=== PATIENT | female | born 1975 ===

== ENCOUNTER 2017-11-03 08:16 | Emergency (ER) | payer BC, OTHER ==
[2017-11-03 08:29] VITALS: BP 111/66
--- NOTE | 2017-11-03 09:04 | UC ---
GI Bleed HPI - HPI Summary HPI Summary: This is scribe [facility]az[facility] ([place] documenting for attending Suhas Gipson MD. Patient is a 42 y/o F complains of rectal bleeding onset ~1 hour ago, this AM. She reports a bowel movement this AM which she describes as "a pool of blood in the toilet". Assoc. Sx: blood in stool. Denies: N/V/D, pain. PMHx: Hemmeroids, however she reports that these symptoms are different from previous instances. She reports not being worried about her menstrual cycle secondary to having an IUD. I, Dr. Gipson, personally performed the services described in this documentation as scribed in my presence and it is both accurate and complete. - History Of Current Complaint Chief Complaint: UCGU Stated Complaint: GI COMPLAINT Time Seen by Provider: 11/03/17 08:48 Hx Obtained From: Patient Hx Last Menstrual Period: iud Onset/Duration: Sudden Onset, Lasting Hours, Still Present Pain Intensity: 0 Pain Scale Used: 0-10 Numeric Associated Signs And Symptoms: Positive: Other - POS: Blood in stool. Negative : Nausea - Allergies/Home medications Allergies/Adverse Reactions: Allergies Allergy/AdvReac Type Severity Reaction Status Date / Time No Known Allergies Allergy Verified 11/03/17 08:29 Home Medications: Home Medications Aspirin 81 mg CHEW TAB* 162 mg PO DAILY 11/03/17 [History Confirmed 11/03/17] PMH/Surg Hx/FS Hx/Imm Hx Endocrine History: Other Other Endocrine History: NEG: DM Cardiovascular History: Other Other Cardiovascular History: POS: Carotid dissection NEG: CAD, HTN Neurological History: Other Other Neurological History: Stroke - Surgical History Surgical History: None - Family History Known Family History: Negative: Cardiac Disease, Hypertension, Diabetes - Social History Occupation: Employed Full-time Lives: With Family Alcohol Use: Daily Substance Use Type: None Smoking Status (MU): Never Smoked Tobacco Review of Systems Constitutional: Other - NEG: pain Gastrointestinal: Other - NEG: N/V/D Genitourinary: Abnormal Bleeding - Rectal All Other Systems Reviewed And Are Negative: Yes Physical Exam - Summary Physical Exam Summary: VITAL SIGNS: Reviewed. GENERAL: Patient is a well-developed and nourished Female who is lying comfortable in the stretcher. Patient is not in any acute respiratory distress. HEAD AND FACE: Normocephalic EYES: PERRLA, EOMI x 2. EARS: Hearing grossly intact. MOUTH: Oropharynx within normal limits. NECK: Supple, trachea is midline, no adenopathy, no JVD, no carotid bruit. CHEST: Symmetric, no tenderness at palpation LUNGS: Clear to auscultation bilaterally. No wheezing or crackles. CVS: Regular rate and rhythm, S1 and S2 present, no murmurs or gallops appreciated. ABDOMEN: Soft, non-tender. Bowel sounds are normal. No abdominal abnormal pulsations. EXTREMITIES: Full ROM in all major joints, no edema, no cyanosis or clubbing. NEURO: Alert and oriented x 3. No acute neurological deficits. Speech is normal and follows RECTAL: nml sphincter tone, multiple external hemorrhoids, no active bleeding, ( -) melena. Triage Information Reviewed: Yes Vital Signs: Initial Vital Signs Temp 98.8 F 11/03/17 08:24 Pulse 72 11/03/17 08:24 Resp 18 11/03/17 08:24 BP 111/66 11/03/17 08:24 Pulse Ox 100 11/03/17 08:24 Vital Signs Reviewed: Yes Bleed Course/Dx - Course Course Of Treatment: Patient is a 42-year-old female who presents to the urgent care with chief complaint of ectopy. She reports that this morning she had a bowel movement and afterwards she soaked blood in the toilet. Patient has no history of rectal bleed. The patient is not been taking any blood thinners, however, the patient is taking aspirin daily. Physical exam: patient has external hemorrhoids, and I believe that the bleeding is from the hemorrhoids. The patient reports that she has had hemorrhoids since she was . Occult blood test is negative. The patient is hemodynamically stable. The patient was instructed to return to the urgent care or go to the ER if the patient develops more rectal bleeding. Otherwise follow-up with primary care physician for further workup and management. Patient is agreeable with that plan. - Differential Dx/Diagnosis Provider Diagnoses: Rectal bleed. External hemorrhoids Discharge - Sign-Out/Discharge Documenting (check all that apply): Patient Departure All imaging exams completed and their final reports reviewed: No Studies - Discharge Plan Condition: Stable Disposition: HOME Prescriptions: Hydrocortisone SUPP* [Anusol HC Supp*] 25 mg .SEE ORDER BID #14 supp Patient Education Materials: Hemorrhoids (DC), Rectal Bleeding (ED) Referrals: [facility] [place] [facility] [Outside] - 3 Days Additional Instructions: Take medications as instructed and adhere to plan Take Acetaminophen or ibuprofen for pain or fever Increase your fluid intake Return to the or go to the emergency department if symptoms worsen Follow-up with primary care physician in next 2-3 days - Billing Disposition and Condition Condition: STABLE Disposition: Home - Attestation Statements Document Initiated by Benito: Yes Documenting Scribe: Lazaro Palacios Provider For Whom Benito is Documenting (Include Credential): Suhas Gipson MD. Scribe Attestation: Lazaro Curry scribed for Suhas Gipson MD. on 11/03/17 at 1608. Scribe Documentation Reviewed: Yes Provider Attestation: The documentation as recorded by the Lazaro clements accurately reflects the service I personally performed and the decisions made by , Suhas Gipson MD.
== END 2017-11-03 09:15 | disposition home or self-care (01) ==
LOC: UCEAST 08:16
DX: K62.5 Hemorrhage of anus and rectum (principal); K64.4 Residual hemorrhoidal skin tags
CPT/HCPCS: 82270; 99202; G0463